=== PATIENT | female | born 1955 | race Two or more races ===

== ENCOUNTER 2022-10-02 15:35 | Emergency (ER) | payer OTHER ==
[~2022-10-02] VITALS: Ht 165.1 cm; Wt 77.1 kg
[2022-10-02] MEDS ORDERED: VALSARTAN320 MG PO (17:20)
[2022-10-02] MEDS ORDERED: GLUMETZA1000 MG PO (17:21)
[2022-10-02] MEDS ORDERED: NORVASC5 MG PO (17:21)
[2022-10-02] MEDS ORDERED: LANTUS SOL100 UNIT/1 SQ (17:22)
== END 2022-10-02 18:58 | disposition home or self-care (01) ==
LOC: ER 15:35
DX: L60.0 Ingrowing nail (principal); E11.9 Type 2 diabetes mellitus without complications; Z79.4 Long term (current) use of insulin